=== PATIENT | male | born 1975 | race Caucasian/White ===

== ENCOUNTER → 2017-01-20 | Outpatient (CLI) | payer BC ==
[2017-01-20 11:27] LABS: ALT 57 U/L (21-72); AST 26 U/L (17-59); Alkaline Phosphatase 80 U/L (38-126); Anion Gap 7 mmol/L; Blood Urea Nitrogen 16 mg/dL (9-20); Calcium 9.2 mg/dL (8.4-10.2); Carbon Dioxide 28 mmol/L (22-30); Chloride 105 mmol/L (98-107); Cholesterol 180 mg/dL (<200); Glucose 92 mg/dL (74-99); HDL Cholesterol 43 mg/dL (40-60); Non-African American GFR(MDRD) >60 (>60 ml/min/1.73 sqM); Potassium 5.2 mmol/L (3.5-5.1); Sodium 140 mmol/L (137-145); Total Protein 7.5 g/dL (6.3-8.2)
[2017-01-20 11:31] LABS: Basophils % (A) 0 %; CH 32.9; CHCM 34.8; Eosinophils # (A) 0.1 k/uL (0-0.7); Eosinophils % (A) 1 %; HCT 51.8 % (39.0-53.0); HDW 2.53; HGB 17.3 gm/dL (13.0-17.5); Luc # (Auto) 0.11; Luc % (Auto) 1; Lymphocytes # (A) 1.4 k/uL (1.0-4.8); Lymphocytes % (A) 16 %; MCH 31.7 pg (25.0-35.0); MCHC 33.4 g/dL (31.0-37.0); MCV 94.9 fL (80.0-100.0); Mean Platelet Volume 8.6; Monocytes # (A) 0.6 k/uL (0-1.0); Monocytes % (A) 7 %; Neutrophils # (A) 6.6 k/uL (1.3-7.7); Neutrophils % (A) 74 %; RBC 5.46 m/uL (4.30-5.90); WBC 8.9 k/uL (3.8-10.6); WBC (Perox) 8.26
== END | disposition home or self-care (01) ==
LOC: LABWHC1 10:27
PROVIDERS: ATTEND Family Medicine
DX: Z00.00 Encounter for general adult medical examination without abnormal findings (principal); J30.9 Allergic rhinitis, unspecified; K21.9 Gastro-esophageal reflux disease without esophagitis
CPT/HCPCS: 36415; 80053; 80061; 82785; 84443; 85025; 86003

== ENCOUNTER → 2017-04-19 | Outpatient (CLI) | payer BC ==
--- NOTE | 2017-04-19 18:42 | PN ---
PROGRESS NOTE This patient is a 41-year-old gentleman who has been re-evaluated in the sleep center for obstructive sleep apnea-hypopnea syndrome. The patient's present sleep schedule is from around 10 or 11 p.m. until 5:30 a.m. on working days and until 7 a.m. on weekends. No problem with falling asleep. He wakes up from sleep with nocturia, snoring, dry mouth, grinding teeth. During the day he feels sleepy. [place] Sleepiness Scale is significantly increased to 14. I saw this patient a little bit more than 1 year ago. At that time it was recommended that he proceed with a sleep study, but the patient was not able to do it at that time. MEDICATIONS: Lipitor. PHYSICAL EXAMINATION: Patient in no distress. BP 111/63, HR 81, RR 16. Height 5 feet 11 inches, weight 265.6, BMI 36.9. Neck is 17 inches in circumference. Temperature 97.4. Oxygen saturation at room air 95%. HEENT: PERRLA, EOMI. Evaluation of oropharynx showed tongue protrudes midline; low position of soft palate. NECK: Supple. No JVD. Thyroid is not palpable. LUNGS: Clear to percussion and to auscultation. Good air exchange. No wheezing or rhonchi. HEART: S1, S2. ABDOMEN: Obese. EXTREMITIES: No clubbing or cyanosis. RN TRANSITIONAL CARE: Awake, alert and oriented x3. Cranial nerves 2 to 7 intact. There is no fasciculation or atrophy noted. No focal deficits observed. IMPRESSION: 1. Snoring, awakenings from sleep, low position of soft palate, wide neck, excessive daytime sleepiness, [place] Sleepiness Scale increased to 14; obstructive sleep apnea syndrome. 2. Obesity; body mass index 36.9. 3. Hyperlipidemia. 4. Sleepiness; [place] Sleepiness Scale increased to 14. Differential diagnosis should include hypersomnia. Sleep study will be negative for obstructive sleep apnea. PLAN: 1. Home sleep apnea test. 2. CPAP/BiPAP titration if sleep study confirms obstructive sleep apnea-hypopnea syndrome. 3. Preferable position during sleep on the side. 4. No driving if patient feels any sleepiness. Patient is aware of civil and criminal liability for unsafe driving. 5. I will see patient for follow-up visit to explain results of testing and following plan. Thank you very much for allowing me to participate in the management of your patient. Sincerely, Bryan Claire MD, PhD, FAASM Diplomat of [place] [employer] [place] [employer] [facility] [place] SYEDA / JC: [id number] /
== END | disposition home or self-care (01) ==
LOC: SLEEP 16:06
PROVIDERS: ATTEND Internal Medicine
DX: G47.33 Obstructive sleep apnea (adult) (pediatric) (principal); E66.9 Obesity, unspecified; E78.5 Hyperlipidemia, unspecified; Z68.36 Body mass index [BMI] 36.0-36.9, adult
CPT/HCPCS: 99211

== ENCOUNTER → 2020-03-28 | Outpatient (CLI) | payer BC ==
[2020-03-28 14:13] LABS: HCT 51.1 % (39.0-53.0); HGB 16.6 gm/dL (13.0-17.5); MCH 31.5 pg (25.0-35.0); MCHC 32.5 g/dL (31.0-37.0); MCV 97.1 fL (80.0-100.0); Mean Platelet Volume 8.6; Platelet Count 199 k/uL (150-450); RBC 5.27 m/uL (4.30-5.90); RDW 12.3 % (11.5-15.5)
[2020-03-28 17:48] LABS: African American GFR (CKD) 106.4 (60.0-200.0); Albumin 4.1 g/dL (3.80-4.90); Albumin/Globulin Ratio 1.58 (1.60-3.17); Calcium 9.3 mg/dL (8.7-10.3); Chol/HDL Ratio 4.74; Globulin 2.6 g/dL (1.6-3.3); LDL Cholesterol,Calculated 109.4 mg/dL (0.0-131.0); Non-African American GFR(CKD) 91.8 (60.0-200.0); Potassium 4.4 mmol/L (3.5-5.5); Total Bilirubin 0.6 mg/dL (0.2-1.2); Total Protein 6.7 g/dL (6.2-8.2); VLDL Calculation 17.6 mg/dL (5.00-40.00)
[2020-03-28 18:39] LABS: Prostate Specific Antigen 0.8 ng/mL (0.0-2.5)
[2020-03-28 19:45] LABS: Hemoglobin A1C 5.3 % (4.0-6.0)
== END | disposition home or self-care (01) ==
LOC: LABMAIN 12:02
PROVIDERS: ATTEND Family Medicine
DX: Z00.00 Encounter for general adult medical examination without abnormal findings (principal); Z91.09 Other allergy status, other than to drugs and biological substances
CPT/HCPCS: 36415; 80053; 80061; 83036; 84153; 84439; 84443; 85027

== ENCOUNTER → 2020-04-30 | Outpatient (CLI) | payer BC | END | disposition home or self-care (01) | LOC: LABWHC1 10:57 | PROVIDERS: ATTEND Otolaryngology | DX: L50.0 Allergic urticaria (principal); J30.89 Other allergic rhinitis | CPT/HCPCS: 36415; 86001 ==